=== PATIENT | female | born 1955 | race Caucasian/White ===

== ENCOUNTER 2017-11-06 07:59 | Day surgery (SDC) | payer MEDICAID ==
[~2017-11-06] VITALS: Ht 167.6 cm; Wt 83.0 kg
[2017-11-06] MEDS ORDERED: LACTATED RINGERS 1,000 ML IV SCH (09:30)
[2017-11-06 09:53] LABS: BASOPHILS % 1.3 % (0.0-2.0); EOSINOPHILS % 1.3 % (0.0-5.0); HEMATOCRIT. 40.8 % (36.0-48.0); HEMOGLOBIN. 14.3 g/dL (12.0-16.0); LYMPHOCYTES % 31.6 % (20.0-50.0); MEAN CORPUSCULAR HEMOGLOBIN 34.3 pg (28.0-32.0); MEAN CORPUSCULAR VOLUME 97.8 fL (81.0-99.0); MEAN PLATELET VOLUME 10.1 fl (7.4-10.4); MONOCYTES % 8.5 % (2.0-8.0); NEUTROPHILS % 57.3 % (40.0-76.0); PLATELET 146 x1000/uL (130-400); RED BLOOD CELL COUNT 4.17 mill/uL (4.2-5.4); RED CELL DISTRIBUTION WIDTH 13.2 % (11.6-14.6)
[2017-11-06 10:01] LABS: INR 1.2; PARTIAL THROMBOPLASTIN TIME 29.4 sec (23.4-31.0); PROTHROMBIN TIME 12.7 sec (9.4-11.6)
[2017-11-06 10:09] LABS: CHLORIDE 103 mEq/L (98-107)
[2017-11-06] MEDS ORDERED: SIMETHICONE 40 MG/0.6 ML 30ML ONE (10:44)
[2017-11-06] MEDS ORDERED: PROPOFOL 200MG/20ML VIAL IV ONE (10:54)
[2017-11-06] MEDS ORDERED: MIDAZOLAM HCL 2 MG/2 ML VIAL ONE (10:55)
[2017-11-06] MEDS ORDERED: GLYCOPYRROLATE 0.2 MG/ML 2ML VIAL ONE (10:55)
[2017-11-06] MEDS ORDERED: SUCCINYLCHOLINE CHLORIDE 200MG/10ML VIAL IV ONE (10:59)
[2017-11-06] MEDS ORDERED: LIDOCAINE HCL/PF 1% 10 MG/ML 5ML VIAL ONE (10:59)
[2017-11-06] MEDS ORDERED: DIPHENHYDRAMINE 50MG/ML VIAL ONE (12:06)
[2017-11-06] MEDS ORDERED: SODIUM CHLORIDE 0.9% 1,000 ML IV ONE (12:23)
[2017-11-06] MEDS ORDERED: HYDROMORPHONE HCL/PF 2MG/ML CPJ IV PRN (12:30)
[2017-11-06] MEDS ORDERED: ONDANSETRON HCL 4MG/2ML VIAL IV PRN (12:30)
[2017-11-06] MEDS ORDERED: OMEP20TA2 PO (13:03)
[2017-11-06] MEDS ORDERED: FOLI-43 PO (13:03)
[2017-11-06] MEDS ORDERED: AMAN100T PO (13:03)
[2017-11-06] MEDS ORDERED: PANT40TA4 PO (13:03)
[2017-11-06] MEDS ORDERED: PERP8TAB6 PO (13:03)
[2017-11-06] MEDS ORDERED: LEVO200T8 PO (13:03)
[2017-11-06] MEDS ORDERED: ASPI-1159 PO (13:03)
[2017-11-06] MEDS ORDERED: MULT-1241 PO (13:03)
[2017-11-06] MEDS ORDERED: PHEN100C12 PO (13:03)
[2017-11-06] MEDS ORDERED: PHEN-910 PO (13:03)
[2017-11-06] MEDS ORDERED: IBUP-516 PO (13:03)
[2017-11-06] MEDS ORDERED: NITR100C PO (13:03)
[2017-11-06] MEDS ORDERED: ARIP15TA2 PO (13:03)
[2017-11-06] MEDS ORDERED: MIRT45TA4 PO (13:03)
[2017-11-06] MEDS ORDERED: CLON1TAB23 PO (13:03)
[2017-11-06] MEDS ORDERED: ATOR40TA70 PO (13:03)
[2017-11-06] MEDS ORDERED: LEVO50TA8 PO (13:03)
[2017-11-06] MEDS ORDERED: FLUT100D IH (13:03)
[2017-11-06] MEDS ORDERED: PREN-132 PO (13:03)
[2017-11-06] MEDS ORDERED: DIAZ5TAB4 PO (13:03)
[2017-11-06] MEDS ORDERED: ATEN50TA PO (13:03)
== END 2017-11-06 13:30 | disposition home or self-care (01) ==
LOC: OR 07:59
PROVIDERS: ATTEND Internal Medicine Gastroenterology
DX: K59.09 Other constipation (principal); K21.9 Gastro-esophageal reflux disease without esophagitis; K29.50 Unspecified chronic gastritis without bleeding; Z80.0 Family history of malignant neoplasm of digestive organs; I10 Essential (primary) hypertension; E78.4 Other hyperlipidemia; Z86.010 Personal history of colon polyps
CPT/HCPCS: 36415; 43239; 45378; 80048; 85025; 85610; 85730; 88305; 88313; 93005; J0330; J1200; J2250; J3490; J7120; J2704